=== PATIENT | female | born 1960 | race Caucasian/White ===

== ENCOUNTER 2022-04-29 10:56 | Emergency (ER) | payer OTHER, SELFPAY ==
[2022-04-29 11:03] VITALS: BP 172/72; PULSE 104; RESP 15; TEMP 37.1; O2SAT 96; BMI 29.9
--- NOTE | 2022-04-29 11:08 | DI.RAD.S_ITS ---
PROCEDURE: XR ACUTE ABDOMEN SERIES INDICATIONS: constipation TECHNIQUE: One view chest and two views of the abdomen were acquired. COMPARISON: None. FINDINGS: Surgical changes and devices: Cholecystectomy clips. Chest: Lungs are clear. Heart size is normal. No pleural effusions. No pneumoperitoneum. Abdomen: Bowel gas pattern is normal. Moderate fecal debris. No suspicious calcifications. Visualized solid organ contours appear normal. Bones: No suspicious bony lesions. IMPRESSION: Moderate fecal debris. Normal bowel gas pattern. Dictated by: Darwin Johnson M.D. on 04/29/2022 at 11:26 Approved by: Darwin Johnson M.D. on 04/29/2022 at 11:30
[2022-04-29 14:38] VITALS: BP 150/73; PULSE 80; RESP 18; O2SAT 99
[2022-04-29 15:22] LABS: Appearance Urine UA CLEAR; Bilirubin Urine UA NEGATIVE (NEGATIVE); Color Urine UA YELLOW; Glucose Urine UA NEGATIVE (Negative); Ketones Urine UA NEGATIVE (NEGATIVE); Leukocyte Esterase Urine UA TRACE (NEGATIVE); Nitrite Urine UA NEGATIVE (Negative); Occult Blood Urine UA TRACE-INTACT (Negative); Protein Urine UA NEGATIVE (Negative); Urobilinogen Urine UA 0.2 E.U./dL (0.2)
[2022-04-29 15:23] LABS: pH Urine UA 5.5 (4.5-8.0)
[2022-04-29 15:32] LABS: Amorphous Sediment Urine 2+; Bacteria Urine Occasional (0-1); Culture Indicated Urine Specimen Cultured; RBC Urine 0-1/HPF (0-5/HPF); Squamous Epithelial Cell Urine 0-1 /HPF (0-5/HPF); WBC Urine 1-5/HPF (0-5/HPF)
--- NOTE | 2022-04-29 15:45 | ED.ABDPAIN ---
HPI - Abdominal Pain <MARLENA Mondragon - Last Filed: 04/29/22 19:01> General Chief Complaint: Abdominal Pain Stated Complaint: bowel obstruction T-1 Time Seen by Provider: 04/29/22 15:05 Source: patient Mode of arrival: Ambulatory History of Present Illness HPI narrative: This is a 61-year-old female who presents to the emergency department with concern about impacted stool in her rectum for the last week without having any bowel movement. She states that she has tried multiple things to have a bowel movement including an enema, milk of magnesia, suppositories, MiraLax, Fleet enema and all things topical. She states that she has something protruding from her anus, isn't sure if it is a hemorrhoid or rectal prolapse. She states that she had blood dripping from her rectum after trying to produce a bowel movement earlier today and another time. She is been using hydrocortisone suppositories as well as topical preparation H. patient has a history of irritable bowel syndrome, does not take any medications to prevent this worsening. Related Data Previous Rx's Medication Instructions Recorded hydrocodone 5 mg-acetaminophen 325 1 tab PO TID PRN pain #10 tabs 04/29/22 mg tablet hydrocortisone 100 mg/60 mL enema 100 mg (60 mL) NC DAILY PRN 04/29/22 inflammation and rectal pain #420 mL lidocaine HCl 1 % topical gel 1 ea topical .as needed #226 grams 04/29/22 (Burn Relief with Lidocaine) linaclotide 290 mcg capsule 290 mcg PO DAILY #30 caps 04/29/22 (Linzess) mineral oil 118 ml NC DAILY PRN constipation 04/29/22 #133 mL Allergies Allergy/AdvReac Type Severity Reaction Status Date / Time morphine Allergy Verified 04/29/22 11:03 Review of Systems <MARLENA Mondragon - Last Filed: 04/29/22 19:01> Review of Systems ROS Unobtainable: All systems reviewed & are unremarkable except as noted in HPI and below Patient History <MARLENA Mondragon - Last Filed: 04/29/22 19:01> Social History Smoking Status: Current every day smoker Smoking Status: Current every day smoker alcohol intake frequency: holidays/special occasions only Substance Use Type: does not use Exam <ANUJ MondragonP - Last Filed: 04/29/22 19:01> Narrative Exam Narrative: Reviewed vitals signs and nursing notes. General: cooperative, comfortable, patient is anxious and in distress about the pain. Afebrile HEENT: symmetrical facial expressions, moist mucous membranes Cardiovascular: regular rate and rhythm, no peripheral edema, warm extremities Respiratory: normal effort, able to speak in complete sentences, without wheezing, stridor, or abnormal breath sounds. No retractions or tachypnea. GI: abdomen soft, nontender to palpation, nondistended, without masses, rebound tenderness or exquisite tenderness with exam. Rectum: Patient has rectal tone, Hemoccult is positive, she has a small soft hemorrhoid that is exquisitely tender that protrudes through the anus, this was covered with lidocaine jelly, then some was inserted to the rectum to allow for exam and suppository placement. After her pain was under control, rectal exam without stool in the rectal vault on 3 exams throughout the course of stay. Patient tolerated this well, ordered CT abdomen to assess for bowel obstruction just above the rectum. MSK: moves all extremities, neurovascularly intact, no weakness, normal tone Skin: brisk capillary refill, without pallor or erythema Neuro: normal speech and cognition, A&O x3, ambulatory, clear speech Psych: mental status is grossly normal, congruent mood, normal affect, pleasant and cooperative Initial Vital Signs Initial Vital Signs: Vital Signs Temperature 98.8 F 04/29/22 11:03 Pulse Rate 104 H 04/29/22 11:03 Respiratory Rate 15 04/29/22 11:03 Blood Pressure 172/72 H 04/29/22 11:03 Pulse Oximetry 96 04/29/22 11:03 Oxygen Delivery Method 04/29/22 11:03 <Jyoti Mcclendon DO - Last Filed: 04/29/22 19:16> Initial Vital Signs Initial Vital Signs: Vital Signs Temperature 98.8 F 04/29/22 11:03 Pulse Rate 104 H 04/29/22 11:03 Respiratory Rate 15 04/29/22 11:03 Blood Pressure 172/72 H 04/29/22 11:03 Pulse Oximetry 96 04/29/22 11:03 Oxygen Delivery Method 04/29/22 11:03 Course <Carmen Casillas, [facility] - Last Filed: 04/29/22 19:01> Orders Ordered: ED Orders 04/29/22 11:08 XR acute abdomen series Stat 04/29/22 15:10 UA dip and micro [Urinalysis and Microscopic] Stat Urine Culture Stat 04/29/22 16:24 CT abdomen pelvis wo con Stat Discontinued Medications Hydrocodone Bitart/Acetaminophen (Hydrocodone/Acet 5/325 Tablet) 1 tab PO NOW ONE Stop: 04/29/22 17:44 Last Admin: 04/29/22 17:50 Dose: 1 tab Documented By: DINORAH Bisacodyl (Bisacodyl 10 Mg Supp) 10 mg NC NOW ONE Stop: 04/29/22 15:07 Last Admin: 04/29/22 16:05 Dose: 10 mg Documented By: AT Diazepam (Diazepam 10 Mg/2 Ml Syringe) 10 mg IM NOW ONE Stop: 04/29/22 15:48 Last Admin: 04/29/22 16:02 Dose: 10 mg Documented By: AT Hydrocortisone (Hydrocortisone 25 Mg Supp) 25 mg NC NOW ONE Stop: 04/29/22 15:19 Last Admin: 04/29/22 16:05 Dose: 25 mg Documented By: AT Hydromorphone HCl (Hydromorphone 1 Mg Inj) 1 mg IM NOW ONE Stop: 04/29/22 15:48 Last Admin: 04/29/22 16:01 Dose: 1 mg Documented By: AT Lidocaine HCl (Lidocaine 2% (Glydo) 6 Ml Gel) 6 ml TOP NOW ONE Stop: 04/29/22 15:19 Last Admin: 04/29/22 16:04 Dose: 6 ml Documented By: AT Magnesium Citrate (Magnesium Citrate 300 Ml Solution) 150 ml PO NOW ONE Stop: 04/29/22 15:07 Last Admin: 04/29/22 16:08 Dose: Not Given Documented By: AT Prednisone (Prednisone 20 Mg Tablet) 40 mg PO NOW ONE Stop: 04/29/22 15:19 Last Admin: 04/29/22 16:02 Dose: 40 mg Documented By: AT Sodium Biphosphate/Sodium Phosphate (Fleets Enema) 1 each NC NOW ONE Stop: 04/29/22 17:18 Last Admin: 04/29/22 17:50 Dose: 1 each Documented By: DINORAH Vital Signs Vital signs: Vital Signs - 8 hr 04/29/22 14:38 Pulse Rate 80 Respiratory Rate 18 Blood Pressure 150/73 H Pulse Oximetry 99 Oxygen Delivery Method Room Air <Jyoti Mcclendon DO - Last Filed: 04/29/22 19:16> Orders Ordered: ED Orders 04/29/22 11:08 XR acute abdomen series Stat 04/29/22 15:10 UA dip and micro [Urinalysis and Microscopic] Stat Urine Culture Stat 04/29/22 16:24 CT abdomen pelvis wo con Stat Discontinued Medications Hydrocodone Bitart/Acetaminophen (Hydrocodone/Acet 5/325 Tablet) 1 tab PO NOW ONE Stop: 04/29/22 17:44 Last Admin: 04/29/22 17:50 Dose: 1 tab Documented By: DINORAH Bisacodyl (Bisacodyl 10 Mg Supp) 10 mg NC NOW ONE Stop: 04/29/22 15:07 Last Admin: 04/29/22 16:05 Dose: 10 mg Documented By: AT Diazepam (Diazepam 10 Mg/2 Ml Syringe) 10 mg IM NOW ONE Stop: 04/29/22 15:48 Last Admin: 04/29/22 16:02 Dose: 10 mg Documented By: AT Hydrocortisone (Hydrocortisone 25 Mg Supp) 25 mg NC NOW ONE Stop: 04/29/22 15:19 Last Admin: 04/29/22 16:05 Dose: 25 mg Documented By: AT Hydromorphone HCl (Hydromorphone 1 Mg Inj) 1 mg IM NOW ONE Stop: 04/29/22 15:48 Last Admin: 04/29/22 16:01 Dose: 1 mg Documented By: AT Lidocaine HCl (Lidocaine 2% (Glydo) 6 Ml Gel) 6 ml TOP NOW ONE Stop: 04/29/22 15:19 Last Admin: 04/29/22 16:04 Dose: 6 ml Documented By: AT Magnesium Citrate (Magnesium Citrate 300 Ml Solution) 150 ml PO NOW ONE Stop: 04/29/22 15:07 Last Admin: 04/29/22 16:08 Dose: Not Given Documented By: AT Prednisone (Prednisone 20 Mg Tablet) 40 mg PO NOW ONE Stop: 04/29/22 15:19 Last Admin: 04/29/22 16:02 Dose: 40 mg Documented By: AT Sodium Biphosphate/Sodium Phosphate (Fleets Enema) 1 each NC NOW ONE Stop: 04/29/22 17:18 Last Admin: 04/29/22 17:50 Dose: 1 each Documented By: DINORAH Vital Signs Vital signs: Vital Signs - 8 hr 04/29/22 14:38 Pulse Rate 80 Respiratory Rate 18 Blood Pressure 150/73 H Pulse Oximetry 99 Oxygen Delivery Method Room Air MDM - Abdominal Pain <Carmen Allen Brownleeminerva, [facility] - Last Filed: 04/29/22 19:01> Lab Data Labs: Lab Results 04/29/22 Range/Units 15:10 Urine Color Yellow Urine Appearance Clear Urine pH 5.5 (4.5-8.0) Ur Specific [place] 1.020 (1.000-1.035) Urine Protein Negative (Negative) Urine Glucose (UA) Negative (Negative) g/dL Urine Ketones Negative (NEGATIVE) Urine Occult Blood Trace-intact (Negative) Urine Nitrate Negative (Negative) Urine Bilirubin Negative (NEGATIVE) Urine Urobilinogen 0.2 (0.2) E.U./dL Ur Leukocyte Esterase Trace H (NEGATIVE) Urine RBC 0-1/hpf (0-5/HPF) Urine WBC 1-5/hpf (0-5/HPF) Ur Squamous Epith Cells 0-1 /hpf (0-5/HPF) Amorphous Sediment 2+ Urine Bacteria Occasional (0-1) (None) Ur Culture Indicated? Specimen cultured Imaging Data CT scan - abdomen/pelvis: Radiologist's Impression: PROCEDURE:? CT ABDOMEN PELVIS WO CON ? INDICATIONS:? Bowel obstruction, bowel perforation, no BM for 6 days, no ? TECHNIQUE:? Noncontrast 5 mm thick sections acquired from the diaphragms to the symphysis.? 5 mm coronal and sagittal reformats were then performed.? For radiation dose reduction, the following was used:? automated exposure control, adjustment of mA and/or kV according to patient size.? ? COMPARISON:? None. ? FINDINGS: Image quality:? Excellent.? ? Lung bases:? Lung bases are clear.? Heart size is normal. ? Solid organs:? Liver:? Subcentimeter hypodensities in the dome of the right lobe of the liver are indeterminate.? Biliary: Status post cholecystectomy. Pancreas: The pancreas has no mass or ductal dilatation. There is no surrounding inflammation. Spleen: Normal size. There are no masses. Adrenals: No hypertrophy or nodules. Kidneys: No obstructive calculus or hydronephrosis.? No solid mass. No cystic mass. ? Peritoneum and bowel:? The distal esophagus and stomach are normal.? The small bowel is not distended but contains fluid.? No air-fluid levels.? The terminal ileum is normal. The large bowel has a normal caliber and appearance.? Status post appendectomy.? No free fluid or air.? ? Nodes and vessels:? No retroperitoneal or mesenteric adenopathy by size criteria.? Aorta and inferior vena cava are normal in size.? Scattered aortic calcifications. ? Miscellaneous:? No abdominal wall mass or hernia. ? PELVIS:? Genitourinary:? The bladder has no wall thickening or mass. No bladder calcifications.? Status post hysterectomy. ? Bones:? No suspicious bony lesions.? No vertebral body compression fractures.? ? IMPRESSION:? 1. No acute abdominal or pelvic abnormality. 2. Fluid filled but nondistended small bowel suggests enteritis.? 3. No constipation.? ? ? Dictated by: Lloyd Hutchison M.D. on 04/29/2022 at 16:45 ? ? Approved by: Lloyd Hutchison M.D. on 04/29/2022 at 16:50 ? Abdominal x-ray: Radiologist's Impression: PROCEDURE:? XR ACUTE ABDOMEN SERIES ? INDICATIONS:? constipation ? TECHNIQUE:? One view chest and two views of the abdomen were acquired.? ? COMPARISON:? None. ? FINDINGS:? ? Surgical changes and devices:? Cholecystectomy clips.? ? Chest:? Lungs are clear.? Heart size is normal.? No pleural effusions.? No pneumoperitoneum.? ? Abdomen:? Bowel gas pattern is normal.? Moderate fecal debris.? No suspicious calcifications.? Visualized solid organ contours appear normal.? ? Bones:? No suspicious bony lesions.? ? IMPRESSION:? Moderate fecal debris.? Normal bowel gas pattern. ? ? Dictated by: Darwin Johnson M.D. on 04/29/2022 at 11:26 ? ? Approved by: Darwin Johnson M.D. on 04/29/2022 at 11:30 ? MDM Narrative Medical decision making narrative: Chief Complaint: Constipation, unable to have a bowel movement, rectal pain Differential diagnoses include but are not limited to: Rectal prolapse, hemorrhoids, constipation, IBS, perforated viscus, sigmoid volvulus, fecal impaction, sigmoid diverticulitis, I have reviewed the patient's vital signs and nursing notes as well as prior records if available. Lab test results independently reviewed, pertinent findings: UA was trace of leukocyte esterase, microscopy with 1-5 WBCs, sediment and occasional bacteria, urine was cultured without treatment for infection Independently reviewed imaging including: Abdominal x-ray without signs of bowel obstruction, air throughout colon Course of care and re-evaluations: Met the patient when I signed up for her, evaluated her for rectal prolapse, hemorrhoid, and she does have an external hemorrhoid, it is exquisitely tender to palpation, she has mild edema, 1620 hemoccult is positive patient tolerated exam only with topical lidocaine, anxiolytic and IM pain medication. She tolerated this well, no stool in rectal vault, 2 attempts at this, ordered CT abdomen without contrast for evaluation possible perforated viscus, sigmoid volvulus, bowel obstruction or fecal impaction Patient states that her pain is much better, has not produced any stool, CT abdomen without acute abdominal or pelvic abnormality, rectum shows fluid-filled but nondistended small bowel suggesting enteritis without constipation. Bladder without thickening or mass, patient has history of hysterectomy. Discussion: Discussed CT results with the patient, gave her a mineral enema which patient wishes to take home, she wishes to complete the magnesium citrate when she gets home as well in the safety of her home. She has hydrocortisone suppositories and topical cream to treat her pain, she requests prescription of Linzess for IBS and chronic constipation. She does not have any meds of interaction with this and it was prescribed as dosing suggest to her pharmacy. Patient understands to follow-up with her primary care provider about this constipation problem for ongoing care. Recommend MiraLax daily bisacodyl suppositories and mineral/fleets enema as needed. Magnesium citrate until patient can pass stool. She states that she feels much better, her urine shows a trace of leukocyte esterase, this was also discussed with her which patient denies any symptoms of dysuria, urinary frequency or urgency or odor. Patient is without fever, chills, peritoneal signs, flank pain, vomiting, or inability to tolerate p.o.. Patient wishes to discharge home with this plan and will return for worsening pain, bleeding, concerning symptoms. Shared decision making: All decisions were made with the patient regarding medication and planning. Patient's symptoms improved over duration of stay with above-stated therapies. Social considerations that may affect disposition: Questions are addressed and there is agreement with the plan and for follow-up. Patient is appropriate for outpatient management. MIPS: This encounter doesn't have any diagnosis' associated with MIPS criteria. <Jyoti Brody Mcclendon, - Last Filed: 04/29/22 19:16> Lab Data Labs: Lab Results 04/29/22 Range/Units 15:10 Urine Color Yellow Urine Appearance Clear Urine pH 5.5 (4.5-8.0) Ur Specific [place] 1.020 (1.000-1.035) Urine Protein Negative (Negative) Urine Glucose (UA) Negative (Negative) g/dL Urine Ketones Negative (NEGATIVE) Urine Occult Blood Trace-intact (Negative) Urine Nitrate Negative (Negative) Urine Bilirubin Negative (NEGATIVE) Urine Urobilinogen 0.2 (0.2) E.U./dL Ur Leukocyte Esterase Trace H (NEGATIVE) Urine RBC 0-1/hpf (0-5/HPF) Urine WBC 1-5/hpf (0-5/HPF) Ur Squamous Epith Cells 0-1 /hpf (0-5/HPF) Amorphous Sediment 2+ Urine Bacteria Occasional (0-1) (None) Ur Culture Indicated? Specimen cultured Discharge Plan Departure Patient Disposition: Home Clinical Impression: History of IBS Constipation Qualifiers: Constipation type: slow transit constipation Qualified Code(s): K59.01 - Slow transit constipation Instructions: Constipation Activity Restrictions/Additional Instructions: *You have been diagnosed with constipation without bowel obstruction. Please use these medications as needed to help treat pain and your symptoms, schedule follow-up with your regular doctor for recheck. Thank you for your patients today and I am sorry for your pain Please continue with your preparation H, suppositories, docusate/bisacodyl suppositories, use the enemas 1-2 daily as needed until you have a bowel movement, okay to use magnesium citrate, half tonight and half tomorrow morning after you have used an enema or at least placed it in. Please stay hydrated, drink plenty of water, take MiraLax daily morning and night until you have soft stool, please feel your medications and see how this new medication works for you. Follow-up with a retest of your urine, we will call you if there is bacterial growth. *Please continue to take your regular medications as directed. [ x] New medication prescriptions sent to your pharmacy: [[facility]] [ ] New medication written as a paper prescription [ ] No new medications given *Please follow up with your primary care provider in 2-3 days, call for an appointment. Let them know you were seen in the Emergency Department and that we asked that you be seen for follow-up. We will electronically transmit a record of today's note if your PCP is in our system *If you do not have a primary care provider please contact [phone] to establish care with one of the [facility] primary care providers. *Return to Emergency Department if you should have any new, worsening, or concerning symptoms, such as [fever greater than 101F, chills, worsening pain, persistent vomiting or other bothersome symptoms]. Prescriptions: New Linzess 290 mcg capsule 290 mcg PO DAILY Qty: 30 0RF Rx Instructions: If you develop diarrhea, please reduced dose to half, this may happen in 2 weeks hydrocortisone 100 mg/60 mL enema 100 mg NC DAILY PRN (Reason: inflammation and rectal pain) Qty: 420 0RF mineral oil Enema 118 ml NC DAILY PRN (Reason: constipation) Qty: 133 5RF Rx Instructions: discard any unused portion Burn Relief with Lidocaine 1 % gel 1 ea topical .as needed Qty: 226 0RF hydrocodone-acetaminophen 5-325 mg tablet 1 tab PO TID PRN (Reason: pain) Qty: 10 0RF Referrals: Miscellaneous,Doctor, [Primary Care Provider] - Stand Alone Forms: Patient Portal/API <Jyoti Mcclendon DO - Last Filed: 04/29/22 19:16> [facility] ED Attending Sourav Attestation: I was immediately available in the department for consultation. Documentation has been reviewed.
[2022-04-29] MEDS: HYDROMORPHONE 1 MG INJ IM (16:01)
[2022-04-29] MEDS: diazePAM 10 MG/2 ML SYRINGE IM (16:02)
[2022-04-29] MEDS: predniSONE 20 MG TABLET 40 MG PO (16:02)
[2022-04-29] MEDS: LIDOCAINE 2% (GLYDO) 6 ML GEL TOP (16:04)
[2022-04-29] MEDS: BISACODYL 10 MG SUPP PR (16:05)
[2022-04-29] MEDS: HYDROCORTISONE 25 MG SUPP PR (16:05)
--- NOTE | 2022-04-29 16:24 | DI.CT.S_ITS ---
PROCEDURE: CT ABDOMEN PELVIS WO CON INDICATIONS: Bowel obstruction, bowel perforation, no BM for 6 days, no TECHNIQUE: Noncontrast 5 mm thick sections acquired from the diaphragms to the symphysis. 5 mm coronal and sagittal reformats were then performed. For radiation dose reduction, the following was used: automated exposure control, adjustment of mA and/or kV according to patient size. COMPARISON: None. FINDINGS: Image quality: Excellent. Lung bases: Lung bases are clear. Heart size is normal. Solid organs: Liver: Subcentimeter hypodensities in the dome of the right lobe of the liver are indeterminate. Biliary: Status post cholecystectomy. Pancreas: The pancreas has no mass or ductal dilatation. There is no surrounding inflammation. Spleen: Normal size. There are no masses. Adrenals: No hypertrophy or nodules. Kidneys: No obstructive calculus or hydronephrosis. No solid mass. No cystic mass. Peritoneum and bowel: The distal esophagus and stomach are normal. The small bowel is not distended but contains fluid. No air-fluid levels. The terminal ileum is normal. The large bowel has a normal caliber and appearance. Status post appendectomy. No free fluid or air. Nodes and vessels: No retroperitoneal or mesenteric adenopathy by size criteria. Aorta and inferior vena cava are normal in size. Scattered aortic calcifications. Miscellaneous: No abdominal wall mass or hernia. PELVIS: Genitourinary: The bladder has no wall thickening or mass. No bladder calcifications. Status post hysterectomy. Bones: No suspicious bony lesions. No vertebral body compression fractures. IMPRESSION: 1. No acute abdominal or pelvic abnormality. 2. Fluid filled but nondistended small bowel suggests enteritis. 3. No constipation. Dictated by: Lloyd Hutchison M.D. on 04/29/2022 at 16:45 Approved by: Lloyd Hutchison M.D. on 04/29/2022 at 16:50
[2022-04-29] MEDS: FLEETS ENEMA 1 EACH PR (17:50)
[2022-04-29] MEDS: HYDROCODONE/ACET 5/325 TABLET 1 TAB PO (17:50)
== END 2022-04-29 17:51 | disposition home or self-care (01) ==
PROVIDERS: Emergency Provider Nurse Practitioner Critical Care Medicine
DX: K59.01 Slow transit constipation (principal); Z87.19 Personal history of other diseases of the digestive system
CPT/HCPCS: 74022; 74176; 81001; 87086; 96372; 99284; J1170; J3360

== ENCOUNTER 2024-06-14 17:07 | Emergency (ER) | payer OTHER, BC, SELFPAY ==
[2024-06-14] VITALS (13 sets, daily range): BP systolic 127–148; BP diastolic 61–75; PULSE 66–101; RESP 17–18; TEMP 35.9; O2SAT 93–99; BMI 27.8
--- NOTE | 2024-06-14 17:22 | DI.RAD.S_ITS ---
PROCEDURE: XR CHEST 1V INDICATIONS: Shortness of breath TECHNIQUE: One view of the chest was acquired. COMPARISON: None. FINDINGS: Surgical changes and devices: None. Lungs and pleura: Lungs are clear. No pleural effusions or pneumothorax. Mediastinum: Mediastinal contours appear normal. Heart size is normal. Bones and chest wall: No suspicious bony lesions. Overlying soft tissues appear unremarkable. IMPRESSION: No acute pulmonary process. Dictated by: Krystina Mortensen M.D. on 06/14/2024 at 17:35 Approved by: Krystina Mortensen M.D. on 06/14/2024 at 17:38
--- NOTE | 2024-06-14 17:22 | EKG_ITS ---
[address] [address] Test Date: 2024-06-14 Pat Name: Rosey Peters Department: Room: Gender: Female Product Support Consultant: UCHE : 1960 Requested By: Order Number: [id number] Reading MD: Bubba Castillo Measurements Intervals [place] Rate: 86 P: 87 NH: 156 QRS: 78 QRSD: 78 T: 74 QT: 382 QTc: 457 Interpretive Statements Normal sinus rhythm Anterior infarct , age undetermined Electronically Signed On 06-16-2024 18:28:54 PDT by Bubba Castillo
[2024-06-14] MEDS: ALBUTEROL/IPRATROPIUM 3 ML AMPUL 9 ML INH (17:28)
[2024-06-14 17:47] LABS: Add Manual Diff / Slide Review NO; Basophils Absolute Auto 200 /uL (0-100); Basophils Percent Auto 1.9 % (0-2); Eosinophils Absolute Auto 0 /uL (0-450); Eosinophils Percent Auto 0.4 % (2-4); Hematocrit 40.3 % (36-46); Lymphocytes Absolute Auto 3100 /uL (1100-4500); Lymphocytes Percent Auto 34.3 % (25-40); Mean Corpuscular HGB Conc 34.7 % (30-36); Mean Corpuscular Hemoglobin 31.2 PG (26-34); Mean Corpuscular Volume 89.7 fL (80-100); Monocytes Absolute Auto 500 /uL (0-900); Monocytes Percent Auto 5.5 % (3-14); Neutrophils Absolute Auto 5300 /uL (1500-7000); Neutrophils Percent Auto 57.9 % (50-75); Platelet Count 403 X10^3/uL (150-400); Red Blood Cell Count 4.49 X10^6/uL (4.0-5.2); Red Cell Distribution Width 12.7 % (11.6-14.8); White Blood Cell Count 9.1 X10^3/uL (4.5-11.0)
[2024-06-14 17:56] LABS: INR 1.1 (0.9-1.3); Prothrombin Time 12.4 SECONDS (9.4-12.5)
[2024-06-14 18:07] LABS: Alanine Aminotransferase 37 IU/L (<35); Albumin 4.5 g/dL (3.5-5.0); Albumin Globulin Ratio 1.6 (1.0-2.8); Alkaline Phosphatase 86 U/L (38-126); Aspartate Aminotransferase 39 IU/L (14-36); BUN Creatinine Ratio 20.9 (6-22); Bilirubin Total 0.5 mg/dL (0.2-1.3); Blood Urea Nitrogen 18 mg/dL (7-17); Calcium 9.4 mg/dL (8.4-10.2); Carbon Dioxide 17 mmol/L (22-32); Chloride 109 mmol/L (98-107); Estimated Glomerular Filt Rate > 60 mL/min (>60); Globulin 2.9 g/dL (1.7-4.1); Glucose 96 mg/dL (80-110); HEMOLYSIS < 15 (0-50); Lactate (Lactic Acid) 2.4 mmol/L (0.7-2.1); Potassium 3.7 mmol/L (3.4-5.1); Sodium 139 mmol/L (137-145); Total Protein 7.4 g/dL (6.3-8.2)
--- NOTE | 2024-06-14 18:15 | PC.NURSE ---
Patients roommate at the bedside, this RN asked if the roommate would like to wear a mask since the patient has confirmed COVID and would be receiving nebulizer. Roommate refused mask and states Lawanda been taking ivermectin
[2024-06-14 18:19] LABS: NT-proBNP (BNP-Adult 18+) 114 pg/mL (<125); Troponin I < 0.012 ng/mL (0.01-0.034)
--- NOTE | 2024-06-14 18:57 | ED.SOB ---
HPI - SOB/Dyspnea General Chief Complaint: Shortness of Breath/Dyspnea Stated Complaint: difficulty breathing Time Seen by Provider: 06/14/24 17:48 Source: patient Mode of arrival: Family Vehicle Limitations: no limitations History of Present Illness HPI Narrative: 63-year-old female past medical history of asthma hypertension presents to the emergency department for shortness of breath/ asthma exacerbation. She states that she tested for COVID and was positive approximately 5 days ago has been initially controlling her cough shortness of breath wheezing with her at-home medications but got worse over the past few days therefore decided come into the ED for further evaluation treatment. Patient denies any actual headache visual disturbances chest pain fever chills nausea vomiting abdominal pain or any other GI/ symptoms at this time. At time of evaluation patient is speaking full sentences protecting airway no voice changes no stridor no trismus. Related Data Previous Rx's Medication Instructions Recorded hydrocodone 5 mg-acetaminophen 325 1 tab PO TID PRN pain #10 tabs 04/29/22 mg tablet hydrocortisone 100 mg/60 mL enema 100 mg (60 mL) HI DAILY PRN 04/29/22 inflammation and rectal pain #420 mL lidocaine HCl 1 % topical gel 1 ea topical .as needed #226 grams 04/29/22 (Burn Relief with Lidocaine) linaclotide 290 mcg capsule 290 mcg PO DAILY #30 caps 04/29/22 (Linzess) mineral oil 118 ml HI DAILY PRN constipation 04/29/22 #133 mL albuterol sulfate 5 mg/mL(0.5 %) 2.5 mg (0.5 mL) inhalation QID PRN 06/14/24 solution for nebulization shortness of breath or wheezing #75 mL albuterol sulfate 90 mcg/actuation 2 puff inhalation Q4-6H PRN 06/14/24 aerosol inhaler (Ventolin HFA) shortness of breath or wheezing #8.5 grams prednisone 20 mg tablet 40 mg (2 x 20 mg) PO DAILY 5 days 06/14/24 #10 tabs Allergies Allergy/AdvReac Type Severity Reaction Status Date / Time morphine Allergy Verified 06/14/24 17:26 Review of Systems Review of Systems Narrative: General: Denies fever, chills, weight loss HEENT: Denies headache, eye drainage, eye irritation, head trauma, sore throat, voice change Cardiovascular: Denies any chest pain, palpitations, tachycardia Respiratory: Positive shortness of breath, cough, wheeze GI/: Denies any abdominal pain, nausea, vomiting, diarrhea, bright red blood per rectum, melanotic stools, urinary frequency, urinary retention, dysuria, hematuria MSK: Denies any joint pain, muscle pains, swelling Skin: Denies any rashes, lesions, discoloration Neuro: Denies any headache, lightheadedness, dizziness, fainting, weakness Psych: Denies SI/HI Patient History Social History Smoking Status: Current every day smoker Smoking Status: Current every day smoker tobacco type: cigarettes alcohol intake frequency: holidays/special occasions only Exam Narrative Exam Narrative: General: Cooperative, comfortable, well-developed, not in acute distress HEENT: Normocephalic, atraumatic, PERRLA, normal sclera, eyelids normal, Neck: Active full range of motion, atraumatic Chest: Normal to inspection, negative crepitus, no overlying erythema ecchymosis Respiratory: patient is speaking full sentences protecting airway no supplemental oxygen needed, mild expiratory wheezes in bilateral lung gore, coughing on exam but not in acute respiratory distress Cardiology: Regular rate rhythm negative gallop, murmur, rubs GI/: Normal to inspection, soft, nonrigid, no tenderness to palpation, exam deferred MSK: Full range of active range of motion of all 4 extremities, atraumatic Skin: No rashes lesions noted Neuro: Alert awake oriented x3, moves all 4 extremities spontaneously, cranial nerves intact, able to answer all questions appropriately follows commands appropriately Psych: Cooperative, negative suicidal or homicidal ideations Initial Vital Signs Initial Vital Signs: Vital Signs Pulse Rate 101 H 06/14/24 17:18 Blood Pressure 138/75 06/14/24 17:18 Pulse Oximetry 98 06/14/24 17:18 Course Orders Ordered: ED Orders 06/14/24 17:22 XR chest 1V Stat EKG-12 Lead Stat Measure peak expiratory flow ONCE RT Consult Eval and Treat NOW 06/14/24 17:39 Complete Blood Count AUTO DIFF Stat Comprehensive Metabolic Panel Stat Lactate (Lactic Acid) Stat NT-proBNP (BNP-Adult 18+) Stat Prothrombin Time INR Stat Troponin I Stat Discontinued Medications Albuterol (Albuterol 2.5 Mg/3 Ml Neb (Adult)) 2.5 mg INH NOW ONE Stop: 06/14/24 19:12 Last Admin: 06/14/24 19:22 Dose: 2.5 mg Documented By: MR Albuterol/Ipratropium (Albuterol/Ipratropium 3 Ml Ampul) 9 ml INH NOW ONE Stop: 06/14/24 17:26 Last Admin: 06/14/24 17:28 Dose: 9 ml Documented By: MANISH Magnesium Sulfate (Magnesium Sulfate) 2 gm in 50 mls @ 150 mls/hr IV NOW ONE Stop: 06/14/24 19:30 Last Infusion: 06/14/24 19:52 Dose: Infused Documented By: CHARLES Co-signed By: ROSA ISELA Admin: 06/14/24 19:19 Dose: 150 mls/hr Documented By: CHARLES Co-signed By: AUREA Methylprednisolone (Methylprednisolone 125 Mg/2 Ml Vial) 125 mg IV NOW ONE Stop: 06/14/24 19:13 Last Admin: 06/14/24 19:18 Dose: 125 mg Documented By: CHARLES Vital Signs Vital signs: Vital Signs - 8 hr 06/14/24 17:18 06/14/24 17:18 06/14/24 17:22 Temperature 96.7 F L Pulse Rate 101 H 75 Respiratory Rate 17 Blood Pressure 138/75 138/75 Pulse Oximetry 98 99 Oxygen Delivery Method Room Air 06/14/24 17:29 06/14/24 17:30 06/14/24 18:00 Temperature Pulse Rate 85 80 72 Respiratory Rate 18 Blood Pressure Pulse Oximetry 96 97 94 Oxygen Delivery Method Room Air Room Air 06/14/24 18:00 06/14/24 18:30 06/14/24 18:30 Temperature Pulse Rate 80 Respiratory Rate Blood Pressure 127/61 133/63 Pulse Oximetry 93 Oxygen Delivery Method Room Air 06/14/24 18:38 06/14/24 18:38 Temperature Pulse Rate 78 Respiratory Rate Blood Pressure 140/62 Pulse Oximetry Oxygen Delivery Method MDM - SOB/Dyspnea Differential Diagnosis Differential diagnosis: Likely acute exacerbation of chronic obstructive airways disease, congestive heart failure, community acquired pneumonia, asthma with exacerbation and other ( electrolyte abnormality, ACS) Lab Data 06/14/24 17:39 06/14/24 17:39 Labs: Lab Results 03/13/25 03/13/25 Range/Units 17:39 19:30 WBC 9.1 (4.5-11.0) X10^3/uL RBC 4.49 (4.0-5.2) X10^6/uL Hgb 14.0 (12.0-16.0) g/dL Hct 40.3 (36-46) % MCV 89.7 (80-100) fL MCH 31.2 (26-34) PG MCHC 34.7 (30-36) % RDW 12.7 (11.6-14.8) % Plt Count 403 H (150-400) X10^3/uL Neut % (Auto) 57.9 (50-75) % Lymph % (Auto) 34.3 (25-40) % [place] % (Auto) 5.5 (3-14) % Eos % (Auto) 0.4 L (2-4) % Baso % (Auto) 1.9 (0-2) % Neut # (Auto) 5300 (7646-7763) /uL Lymph # (Auto) 3100 (5584-5390) /uL [place] # (Auto) 500 (0-900) /uL Eos # (Auto) 0 (0-450) /uL Baso # (Auto) 200 H (0-100) /uL PT 12.4 (9.4-12.5) SECONDS INR 1.1 (0.9-1.3) Sodium 139 (137-145) mmol/L Potassium 3.7 (3.4-5.1) mmol/L Chloride 109 H (98-107) mmol/L Carbon Dioxide 17 L (22-32) mmol/L BUN 18 H (7-17) mg/dL Creatinine 0.86 (0.52-1.04) mg/dL Estimated GFR > 60 (>60) mL/min BUN/Creatinine Ratio 20.9 (6-22) Glucose 96 (80-110) mg/dL Lactate 2.4 H 1.8 (0.7-2.1) mmol/L Calcium 9.4 (8.4-10.2) mg/dL Total Bilirubin 0.5 (0.2-1.3) mg/dL AST 39 H (14-36) IU/L ALT 37 H (<35) IU/L Alkaline Phosphatase 86 (38-126) U/L Troponin I < 0.012 (0.01-0.034) ng/mL NT-Pro-B Natriuret Pep 114 (<125) pg/mL Total Protein 7.4 (6.3-8.2) g/dL Albumin 4.5 (3.5-5.0) g/dL Globulin 2.9 (1.7-4.1) g/dL Albumin/Globulin Ratio 1.6 (1.0-2.8) Imaging Data Chest x-ray: Radiologist's Impression: [address] [address] XRay Report Signed Patient: Rosey Peters MR#: [id number] : 1960 Acct:[id number] Age/Sex: 63 / F Date of Service: 06/14/24 Loc: ED Accession Number: [id number] Procedure: XR chest 1V Ordering Provider: Sharon Paris MD PROCEDURE: XR CHEST 1V INDICATIONS: Shortness of breath TECHNIQUE: One view of the chest was acquired. COMPARISON: None. FINDINGS: Surgical changes and devices: None. Lungs and pleura: Lungs are clear. No pleural effusions or pneumothorax. Mediastinum: Mediastinal contours appear normal. Heart size is normal. Bones and chest wall: No suspicious bony lesions. Overlying soft tissues appear unremarkable. IMPRESSION: No acute pulmonary process. ECG Data Interpretation: EKG interpreted by ED physician sinus 86 beats per minute QTC [address] changes no STEMI MDM Narrative Medical decision making narrative: 63-year-old female with a history of asthma hypertension presenting for asthma exacerbation, noted to be COVID positive approximately 4-5 days ago, symptoms got worse over the past 2 days. Patient with nonischemic EKG chest x-ray without any consolidation. initial lactate elevated at 2.4 with a repeat 1.8 Troponin negative, remainder of lab work unremarkable. Patient did get Solu-Medrol, albuterol, DuoNeb, magnesium with significant improvement of symptoms. Patient not requiring any supplemental oxygen. Patient will be sent home with steroids nebulizer albuterol and meter dose inhaler refill, patient was given strict return precautions she verbalized understanding of this and agrees to being discharged home with outpatient follow up. Discharge Plan Departure Patient Disposition: Home Clinical Impression: Asthma with exacerbation Activity Restrictions/Additional Instructions: please follow up with your primary care doctor Please read the discharge instructions sheet carefully and bring all papers to all doctor follow-up visits, as it may contain information that your doctor may want to see. Disease processes change and evolve, if your symptoms worsen or if you develop any new symptoms that are concerning to you please return for evaluation. Your evaluation today does not show any evidence of any life-threatening/serious illnesses requiring admission to the hospital or surgery. Please follow-up with your doctor for re-evaluation in approximately 1 day. Seek immediate medical attention for any worrisome symptoms. *If you do not have a primary care provider please contact the [facility] Resource line at [phone]. They will ask some questions about your medical history and help get you set up with a doctor in the community. Prescriptions: New prednisone 20 mg tablet 40 mg PO DAILY 5 Days Qty: 10 0RF albuterol sulfate [Ventolin HFA] 90 mcg/actuation HFA aerosol inhaler 2 puff inhalation Q4-6H PRN (Reason: shortness of breath or wheezing) Qty: 8.5 0RF albuterol sulfate 5 mg/mL solution for nebulization 2.5 mg inhalation QID PRN (Reason: shortness of breath or wheezing) Qty: 75 0RF No Action Linzess 290 mcg capsule 290 mcg PO DAILY Qty: 30 0RF Rx Instructions: If you develop diarrhea, please reduced dose to half, this may happen in 2 weeks hydrocortisone 100 mg/60 mL enema 100 mg HI DAILY PRN (Reason: inflammation and rectal pain) Qty: 420 0RF mineral oil Enema 118 ml HI DAILY PRN (Reason: constipation) Qty: 133 5RF Rx Instructions: discard any unused portion Burn Relief with Lidocaine 1 % gel 1 ea topical .as needed Qty: 226 0RF hydrocodone-acetaminophen 5-325 mg tablet 1 tab PO TID PRN (Reason: pain) Qty: 10 0RF Referrals: Miscellaneous,Doctor, MD [Primary Care Provider] - Stand Alone Forms: Patient Portal/API/Survey, Work Release Note
[2024-06-14] MEDS: methylPREDNISolone 125 MG/2 ML VIAL IV (19:18)
[2024-06-14 19:19] LABS: Reflexed Lactate in 2 Hours Y
[2024-06-14] MEDS: MAGNESIUM SULFATE 2 GM/50 ML PIGGYBACK IV (19:19)
[2024-06-14] MEDS: ALBUTEROL 2.5 MG/3 ML NEB (ADULT) INH (19:22)
[2024-06-14 19:52] LABS: Lactate 2HR (Lactic Acid Rflx) 1.8 mmol/L (0.7-2.1)
== END 2024-06-14 20:37 | disposition home or self-care (01) ==
PROVIDERS: Emergency Medicine; Emergency Provider Student in an Organized Health Care Education/Training Program
DX: J45.901 Unspecified asthma with (acute) exacerbation (principal)
CPT/HCPCS: 36415; 71045; 80053; 83605; 83880; 84484; 85025; 85610; 93005; 94640; 96365; 96375; 99284; J2919; J3475; J7613